=== PATIENT | female | born 1995 | race African-American/Black ===

== ENCOUNTER 2024-07-17 17:00 | Emergency (ER) | payer OTHER ==
[~2024-07-17] VITALS: Ht 172.7 cm; Wt 81.6 kg
[2024-07-17 17:32] VITALS: BP 132/88; TEMP 98.2
[2024-07-17] MEDS ORDERED: FLUT16SP16 BNOSTRILS (17:49)
[2024-07-17 18:17] VITALS: O2SAT 99
== END 2024-07-17 18:18 | disposition home or self-care (01) ==
LOC: ER 17:08
DX: J30.9 Allergic rhinitis, unspecified (principal); H92.03 Otalgia, bilateral; J34.89 Other specified disorders of nose and nasal sinuses

== ENCOUNTER 2024-07-21 08:17 | Emergency (ER) | payer OTHER ==
[~2024-07-21] VITALS: Ht 175.3 cm; Wt 85.7 kg
[~2024-07-21 08:17] MED LIST: FLUT16SP16 BNOSTRILS
[2024-07-21 08:24] VITALS: BP 122/78; TEMP 98
[2024-07-21] MEDS ORDERED: METH4TAB17 PO (09:01)
[2024-07-21 09:04] VITALS: O2SAT 99
== END 2024-07-21 09:05 | disposition home or self-care (01) ==
LOC: ER 08:28
DX: R42 Dizziness and giddiness (principal); H92.03 Otalgia, bilateral; R00.0 Tachycardia, unspecified; R03.0 Elevated blood-pressure reading, without diagnosis of hypertension; R43.9 Unspecified disturbances of smell and taste

== ENCOUNTER 2024-08-14 08:54 | Emergency (ER) | payer OTHER ==
[~2024-08-14] VITALS: Ht 172.7 cm; Wt 93.0 kg
[~2024-08-14 08:54] MED LIST changes: +METH4TAB17 PO
[2024-08-14 09:05] VITALS: BP 122/83; TEMP 98.1; O2SAT 100
[2024-08-14] MEDS ORDERED: CEPH-570 PO (09:14)
== END 2024-08-14 09:44 | disposition home or self-care (01) ==
LOC: ER 08:57
DX: H92.03 Otalgia, bilateral (principal); Z79.899 Other long term (current) drug therapy